=== PATIENT | male | born 1930 | race Caucasian/White ===

== ENCOUNTER 2018-11-03 17:37 | Emergency (ER) | payer MEDICARE, MEDICAID ==
[~2018-11-03] VITALS: Wt 80.0 kg
[2018-11-03] MEDS ORDERED: ALBUTEROL 0.083% (NEB) 2.5 MG/3 ML AMP NEB STA (18:37)
[2018-11-03] MEDS ORDERED: IPRATROPIUM (NEB) 0.5 MG/2.5 ML AMP NEB STA (18:37)
[2018-11-03] MEDS ORDERED: BENZONATATE 100 MG CAP PO ONE (19:00)
[2018-11-03] MEDS ORDERED: ALBU8.5H8 INH (20:19)
[2018-11-03] MEDS ORDERED: BENZ-6 PO (20:19)
[2018-11-03] MEDS ORDERED: AZIT250T PO (20:19)
--- NOTE | 2018-11-03 20:24 | ERD ---
ER Documentation Chief Complaint Chief Complaint HAS FLU X 1 WEEK, COUGH HPI This is an 88-year-old male. The patient lives alone and is able to attend to his activities of daily living. The patient indicates for the past week he has had a productive cough which is progressively worsened. He said no fevers or shaking or chills. The patient denies any shortness of breath at rest or exertion. He denies any nausea vomiting abdominal pain. There is no chest pain or pressure. Patient has no past medical history other than mild gastritis and denies tobacco use. No recent travel. No recent hospitalizations. ROS All systems reviewed and are negative except as per history of present illness. Medications Home Meds Active Scripts Benzonatate* (Tessalon Perle*) 100 Mg Capsule, 100 MG PO TID, #20 CAP Prov:NADIR SKY MD 11/03/18 Albuterol Sulfate* (Proair HFA*) 8.5 Gm Hfa.aer.ad, 2 PUFF INH Q4H PRN for WHEEZING AND SOB, #1 INHALER Prov:NADIR SKY MD 11/03/18 Azithromycin* (Zithromax*) 250 Mg Tablet, 250 MG PO .ZPACK DIRECTED, #6 TAB TAKE 500 MG (2 TABS) THE FIRST DAY THEN 250 MG (1 TAB) DAYS 2-5 Prov:NADIR SKY MD 11/03/18 Allergies Allergies: Coded Allergies: No Known Allergy (Unverified , 11/03/18) PMhx/Soc History of Surgery: No Anesthesia Reaction: No Hx Neurological Disorder: No Hx Respiratory Disorders: No Hx Cardiac Disorders: No Hx Psychiatric Problems: No Hx Miscellaneous Medical Probl: Yes (BPH) Hx Alcohol Use: No Hx Substance Use: Yes (MARIJUANA) Hx Tobacco Use: No Smoking Status: Never smoker Physical Exam Vitals Vital Signs Date Temp Pulse Resp B/P (MAP) Pulse Ox O2 O2 Flow FiO2 Time Delivery Rate 11/03/18 94 20 95 21 18:49 11/03/18 98.9 91 18 188/95 99 Room Air 18:20 (126) 11/03/18 98.3 96 18 168/87 99 17:41 (114) Physical Exam Constitutional:Well-developed. Well-nourished. HEENT:Normocephalic. Atraumatic.Pupils were equal round reactive to light. Moist mucous membranes.No tonsillar exudates. Neck: No nuchal rigidity. No lymphadenopathy. No posterior cervical spine tenderness or step-offs. Respiratory: Not using accessory muscles of respiration.Lungs were clear to auscultation bilaterally. No rhonchi. No rales. Wheezing bilaterally. Cardiovascular: Regular rate regular rhythm.No murmurs. No rubs were appreciated.S1, S2 normal. Distal pulses are palpable 2+ bilaterally. GI: Abdomen was soft. Nontender. Non Distended. No pulsatile abdominal masses or bruits. No rebound. No guarding. Bowel sounds were present and normal. Muscle skeletal: Full range of motion of both the upper and lower extremities bilaterally.Normal muscle tone.No assymetrical calf tenderness or swelling. Skin: No petechia, no purpura. No lesions on the palms or the soles of the feet. No maculopapular rash. NEURO: Patient was alert, awake, orientated x3.No facial droop. Gait observed and normal with no ataxia.Speech had regular rate and rhythm. No focal neurological deficits. Result Diagram: 11/03/18183411/03/185 Results 24 hrs Laboratory Tests Test 11/03/18 18:35 White Blood Count 5.8 10^3/ul Red Blood Count 3.94 10^6/ul Hemoglobin 10.9 g/dl Hematocrit 35.7 % Mean Corpuscular Volume 90.6 fl Mean Corpuscular Hemoglobin 27.7 pg Mean Corpuscular Hemoglobin Concent 30.5 g/dl Red Cell Distribution Width 15.1 % Platelet Count 159 10^3/UL Mean Platelet Volume 9.3 fl Immature Granulocytes % 0.500 % Neutrophils % 75.9 % Lymphocytes % 12.1 % Monocytes % 5.4 % Eosinophils % 5.4 % Basophils % 0.7 % Nucleated Red Blood Cells % 0.0 /100WBC Immature Granulocytes # 0.030 10^3/ul Neutrophils # 4.4 10^3/ul Lymphocytes # 0.7 10^3/ul Monocytes # 0.3 10^3/ul Eosinophils # 0.3 10^3/ul Basophils # 0.0 10^3/ul Nucleated Red Blood Cells # 0.0 10^3/ul Prothrombin Time 13.5 Sec Prothrombin Time Ratio 1.1 INR International Normalized Ratio 1.02 Activated Partial Thromboplast Time 32.3 Sec Sodium Level 144 mmol/L Potassium Level 4.5 mmol/L Chloride Level 108 mmol/L Carbon Dioxide Level 29 mmol/L Anion Gap 7 Blood Urea Nitrogen 30 mg/dl Creatinine 1.78 mg/dl Est Glomerular Filtrat Rate mL/min mL/min Glucose Level 107 mg/dl Calcium Level 8.5 mg/dl Total Bilirubin 0.2 mg/dl Direct Bilirubin 0.00 mg/dl Indirect Bilirubin 0.2 mg/dl Aspartate Amino Transf (AST/SGOT) 30 IU/L Alanine Aminotransferase (ALT/SGPT) 14 IU/L Alkaline Phosphatase 91 IU/L Creatine Kinase 162 IU/L Creatine Kinase Index 1.7 Creatinine Kinase MB (Mass) 2.69 ng/ml Troponin I < 0.012 ng/ml B-Type Natriuretic Peptide 822 PG/ML Total Protein 7.2 g/dl Albumin 4.1 g/dl Globulin 3.10 g/dl Albumin/Globulin Ratio 1.32 Current Medications Medications Dose Sig/Kyle Start Time Status Last (Trade) Ordered Route PRN Stop Time Admin Dose Reason Admin Benzonatate 100 mg ONCE ONCE 11/03/18 DC 11/03/18 (Tessalon) PO 19:00 11/03/18 19:05 19:01 Albuterol 5 mg ONCE STAT 11/03/18 DC 11/03/18 (Proventil NEB 18:37 11/03/18 18:49 0.083% (Neb)) 18:39 Ipratropium 0.5 mg ONCE STAT 11/03/18 DC 11/03/18 [place] NEB 18:37 11/03/18 18:49 (Atrovent 18:39 0.02% (Neb)) Procedures/MDM This is a very pleasant 88-year-old male. He presented with mild difficulty breathing. I did a chest radiograph there is no infiltrates pneumothorax or pleural effusions. The patient had no leukocyte ptosis. No severe electrolyte abnormalities. The patient received a nebulizer treatment of albuterol and Atrovent. He was given Tessalon Perles as an antitussive. 12 Lead EKG tracing ordered and reviewed by myself showed: Normal sinus rhythm of 98 bpm and no arrhythmia. MT interval normal. QRS duration normal. No ST segment elevation. Left anterior fascicular block No ST segment depression. No changes consistent with acute ischemia. I did feel that the patient be safely discharged home. He stated he did not want to stay in the hospital. I felt his symptoms are likely result of a mild bronchitis. He will be sent home with azithromycin and Tessalon Perles as needed antitussive. He was also given an albuterol inhaler. The patient was discharged home in fair condition. They were instructed to return to the emergency department at any time if there was any worsening of their condition. The patient stated they would follow up with their PCP in the next 24-48 hours t o initiate a suitable medication regimen under the care of their PCP as well as to allow their PCP to monitor any drug reactions. The patient was discharged home with prescriptions after they gave informed consent to the new medication. They were also fully informed by myself on the adverse effects and adverse drug interactions in order to provide adequate safeguards to prevent possible adverse reactions to medications. Departure Diagnosis: Primary Impression: Bronchitis Condition: Fair Patient Instructions: Bronchitis With Wheezing (Adult) NADIR SKY MD Nov 03, 2018 20:24
[2018-11-03 20:35] VITALS: BP 140/81; PULSE 92; RESP 19
[2018-11-03] MEDS ORDERED: ESOM40CA PO (20:35)
== END 2018-11-03 20:35 | disposition home or self-care (01) ==
LOC: E/R 17:37
DX: J40 Bronchitis, not specified as acute or chronic (principal); R07.9 Chest pain, unspecified
CPT/HCPCS: 71045; 80053; 82550; 82553; 83880; 84484; 85025; 85610; 85730; 87400; 93005; 94664

== ENCOUNTER 2018-11-09 12:28 | Emergency (ER) | payer MEDICARE, MEDICAID ==
[~2018-11-09] VITALS: Wt 81.0 kg
[~2018-11-09 12:28] MED LIST: ALBU8.5H8 INH; AZIT250T PO; BENZ-6 PO; ESOM40CA PO
[2018-11-09 12:33] VITALS: BP 123/72
[2018-11-09] MEDS ORDERED: IPRATROPIUM (NEB) 0.5 MG/2.5 ML AMP NEB STA (12:57)
[2018-11-09] MEDS ORDERED: ALBUTEROL 0.5% (NEB) 2.5 MG/0.5 ML AMP NEB STA (12:57)
[2018-11-09 14:11] VITALS: PULSE 89; RESP 22
--- NOTE | 2018-11-09 14:17 | ERD ---
ER Documentation Chief Complaint Chief Complaint COUGH X 2 WEEKS HPI This is an 88-year-old male that presents to the emergency department complaining of cough for 2 weeks. The patient was seen and evaluated by myself several days ago. He had a chest radiograph which was found to be normal. The patient been treated for bronchitis. He states however that the cough has only mildly improved. He denies any fever shaking or chills. He denies any shortness of breath at rest or exertion. He states he is here to receive a breathing treatment is that significantly improved his symptoms. ROS All systems reviewed and are negative except as per history of present illness. Medications Home Meds Active Scripts Esomeprazole Mag Trihydrate (Nexium) 40 Mg Capsule.dr, 40 MG PO DAILY, #30 CAP Prov:NADIR SKY MD 11/03/18 Benzonatate* (Tessalon Perle*) 100 Mg Capsule, 100 MG PO TID, #20 CAP Prov:NADIR SKY MD 11/03/18 Albuterol Sulfate* (Proair HFA*) 8.5 Gm Hfa.aer.ad, 2 PUFF INH Q4H PRN for WHEEZING AND SOB, #1 INHALER Prov:NADIR SKY MD 11/03/18 Azithromycin* (Zithromax*) 250 Mg Tablet, 250 MG PO .ZPACK DIRECTED, #6 TAB TAKE 500 MG (2 TABS) THE FIRST DAY THEN 250 MG (1 TAB) DAYS 2-5 Prov:NADIR SKY MD 11/03/18 Allergies Allergies: Coded Allergies: No Known Allergy (Unverified , 11/03/18) PMhx/Soc History of Surgery: No Anesthesia Reaction: No Hx Neurological Disorder: No Hx Respiratory Disorders: No Hx Cardiac Disorders: No Hx Psychiatric Problems: No Hx Miscellaneous Medical Probl: Yes (BPH) Hx Alcohol Use: No Hx Substance Use: Yes (MARIJUANA) Hx Tobacco Use: No Smoking Status: Never smoker Physical Exam Vitals Vital Signs Date Temp Pulse Resp B/P (MAP) Pulse Ox O2 O2 Flow FiO2 Time Delivery Rate 11/09/18 89 22 99 Room Air 14:11 11/09/18 78 18 99 21 13:06 11/09/18 98.4 82 18 123/72 99 12:33 (89) Physical Exam Constitutional:Well-developed. Well-nourished. HEENT:Normocephalic. Atraumatic.Pupils were equal round reactive to light. Moist mucous membranes.No tonsillar exudates. Neck: No nuchal rigidity. No lymphadenopathy. No posterior cervical spine tenderness or step-offs. Respiratory: Not using accessory muscles of respiration.Lungs were clear to auscultation bilaterally. No rhonchi. No rales. Mild wheezing bilaterally. Cardiovascular: Regular rate regular rhythm.No murmurs. No rubs were appreciated.S1, S2 normal. Distal pulses are palpable 2+ bilaterally. Skin: No petechia, no purpura. No lesions on the palms or the soles of the feet. No maculopapular rash. NEURO: Patient was alert, awake, orientated x3.No facial droop. Gait observed and normal with no ataxia.Speech had regular rate and rhythm. No focal neurological deficits. Results 24 hrs Current Medications Medications Dose Sig/Kyle Start Time Status Last (Trade) Ordered Route PRN Stop Time Admin Dose Reason Admin Albuterol 10 mg ONCE STAT 11/09/18 DC 11/09/18 (Proventil NEB 12:57 11/09/18 13:05 0.5% (Neb)) 12:58 Ipratropium 0.5 mg ONCE STAT 11/09/18 DC 11/09/18 [place] NEB 12:57 11/09/18 13:06 (Atrovent 12:58 0.02% (Neb)) Procedures/MDM Is an 88-year-old male that presented to the emergency department with a persistent cough for the past 2 weeks. Patient was not hypoxic. He was not in severe respiratory distress. The patient was able to speak in full complete sentences. He did receive a nebulizer treatment. Afterwards the patient eloped without completion of treatment. Departure Diagnosis: Primary Impression: Cough Condition: Fair Patient Instructions: Bronchitis With Wheezing (Adult), Cough, Chronic, Uncertain Cause, (Adult) NADIR SKY MD Nov 09, 2018 14:17
== END 2018-11-09 15:37 | disposition home or self-care (01) ==
LOC: E/R 12:28
DX: R05 Cough (principal)
CPT/HCPCS: 94644

== ENCOUNTER 2018-11-21 18:22 | Emergency (ER) | payer MEDICARE, MEDICAID ==
[~2018-11-21] VITALS: Ht 175.3 cm; Wt 79.0 kg
[2018-11-21 18:45] VITALS: Ht 175.3 cm; Wt 79.0 kg
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
[2018-11-21 23:15] VITALS: BP 133/68; PULSE 74; RESP 20
== END 2018-11-21 23:15 | disposition home or self-care (01) ==
LOC: E/R 18:22
DX: R51 Headache (principal); R40.2141 Coma scale, eyes open, spontaneous, in the field [EMT or ambulance]; R40.2362 Coma scale, best motor response, obeys commands, at arrival to emergency department; R40.2252 Coma scale, best verbal response, oriented, at arrival to emergency department
CPT/HCPCS: 70450; 93005